=== PATIENT | female | born 1950 | race Caucasian/White ===

== ENCOUNTER 2017-06-11 03:58 | Inpatient (IN) | payer OTHER ==
[~2017-06-11] VITALS: Ht 170.2 cm; Wt 77.1 kg
[~2017-06-11 03:58] MED LIST: AMOXICILLIN500 M2 PO; MOVE FREE JOIN1 EACH; PREVIFEM TABLE1 EACH PO; VITAMIN D31000 UNI1 PO; ZANTAC150 M1 PO; ZYRTEC10 M3 PO
--- NOTE | 2017-06-11 13:22 | Admission Core Measures ---
Acute Coronary Syndrome (CM) ACS Core Measures Acute Coronary Syndrome Diagnosis No Congestive Heart Failure (NEW) CHF Core Measures Congestive Heart Failure Diagnosis No Cerebrovascular Accident (NEW) CVA Core Measures CVA/TIA Diagnosis No Venous Thromboembolism VTE Core Padmini (View Protocol) VTE Risk Factors Surgery No Mechanical VTE Prophylaxis d/t N/A MechProphylax Ordered No VTE Pharm Prophylaxis d/t NA PharmProphylax ordered Problem List As ranked by this Provider includes Assessment & Plan 1. Unilateral primary osteoarthritis, left knee HOME MEDS Home Med List Cetirizine HCl (Zyrtec) 10 MG TABLET 1 TAB PO PRN ALLERGIES (Reported) Cholecalciferol (Vitamin D3) (Vitamin D3) 1,000 UNIT CAPSULE 1 CAP PO DAILY SUPPLEMENT (Reported) Ranitidine HCl (Zantac) 150 MG TABLET 1 TAB PO BID GI (Reported)
[2017-06-11] MEDS ORDERED: MIRALAX17 G1 PO (13:29)
[2017-06-11] MEDS ORDERED: ASPIRIN EC325 M2 PO (13:29)
[2017-06-11] MEDS ORDERED: COLACE100 M1 PO (13:29)
[2017-06-11] MEDS ORDERED: DILAUDID2 M1 PO (13:29)
[2017-06-11] MEDS ORDERED: ASPIRIN EC81 M1 PO (13:36)
--- NOTE | 2017-06-11 13:41 | Patient Discharge Instructions ---
Discharge Instructions General Discharge Information You were seen/treated for: Left knee pain related to unilateral primary osteoarthritis You had these procedures: Left total knee replacement Watch for these problems: Increasing pain despite the use of pain medication Increasing redness, warmth or swelling Drainage of any type from incision Inability to bear weight on operative leg Persistent nausea and vomiting Fever greater than 101.5 degrees Do not soak the wound: Yes No bath, but you may shower: Yes Other wound care: Please keep wound clean and dry. No ointments or lotions of any type on or near incision at any time. No exceptions. Your dressing will be changed by your nurse on the second day after your surgery. Daily dry dressing changes are recommended each day thereafter. Do not soak your wound in a bath at any time until otherwise indicated by your surgeon. You may shower, please dry wound immediately after shower with a clean towel. Special Instructions: Aspirin: You are taking this medication to help prevent blood clot formation. Please take with food to protect your stomach lining. Please take as directed. Constipation: Pain medication can cause constipation. Dr. Castro has recommended that you take Colace and miralax each day. You may discontinue this medication if you develop loose stool or diarrhea. If you wish to continue this medication, it is available over the counter. If you are unable to move your bowels after several days, if you are unable to pass gas and are developing bloating, nausea, or vomiting as a result, please contact your doctor. Diet Continue normal diet: Yes Recommended Diet: Regular Acute Coronary Syndrome Inclusion Criteria At DC or during hospital stay patient has or had the following: ACS DIAGNOSIS No Discharge Core Measures Meds if any: Prescribed or Continued at Discharge Meds if any: NOT Prescribed or Continued at Discharge Congestive Heart Failure Inclusion Criteria At DC or during hospital stay patient has or had the following: CHF DIAGNOSIS No Discharge Core Measures Meds if any: Prescribed or Continued at Discharge Meds if any: NOT Prescribed or Continued at Discharge Cerebrovascular accident Inclusion Criteria At DC or during hospital stay patient has or had the following: CVA/TIA Diagnosis No Discharge Core Measures Meds if any: Prescribed or Continued at Discharge Meds if any: NOT Prescribed or Continued at Discharge Venous thromboembolism Inclusion Criteria VTE Diagnosis No VTE Type NONE VTE Confirmed by (Test) NONE Discharge Core Measures - Per Current guidelines, there needs to be overlap - treatment for the first 5 days of Warfarin therapy. - If discharged on Warfarin prior to 5 days of - overlap therapy, the patient will need to be - assessed for post discharge needs including - *Post discharge parental anticoagulation - *Warfarin and/or parental anticoagulation education - *Follow up date to check INR post discharge At least 5 days overlap therapy as Inpatient No Meds if any: Prescribed or Continued at Discharge Note: Overlap Therapy is Warfarin and Anticoagulant Meds if any: NOT Prescribed or Continued at Discharge
--- NOTE | 2017-06-11 13:49 | Surgical Discharge Summary ---
Visit Information Visit Dates Admission Date: 06/11/17 Discharge Date: 06/13/17 History of Present Illness Chief Complaint: Left knee pain related to unilateral primary osteoarthritis Medical History Isolation History: Standard Surgical History Pertinent Surgical History: non-contributory Review of Systems: See H&P Hospital Course Course Attending Physician: Saulo Castro MD Primary Care Physician: Elian Rowe MD Hospital Course: Patient was admitted to the hospital for an elective total joint replacement. The procedure was tolerated well and patient was transferred to a general surgical floor. Diet was advanced and tolerated, and the patient voided spontaneously. The patient was evaluated and treated by physical therapy. At the time of hospital discharge, the vital signs were stable, neurovascular status was intact, and pain was controlled with the use of oral pain medications. She was discharged to home on POD#2 after being cleared by PT. She requested a prescription for "hydrocodone" instead of dilaudid, as she felt it has been more effective for pain control in her past. Complications: NONE Allergies: Coded Allergies: No Known Allergies (06/11/17) Disposition Summary Disposition Principal Diagnosis: Left knee unilateral primary osteoarthritis Additional Diagnosis: None Discharge Disposition: home health services Discharge Instructions General Discharge Information Code Status: Full Code Patient's Diet: Regular, advance as tolerated Patient's Activity: WBAT Follow-Up Instructions/Appts: Follow up with Dr. Castro in 6 weeks from date of surgery Medications at Discharge Discharge Medications: Continue taking these medications: Cholecalciferol (Vitamin D3) (Vitamin D3) 1,000 UNIT CAPSULE 1 Capsule ORAL DAILY Ranitidine HCl (Zantac) 150 MG TABLET 1 Tablet ORAL TWICE DAILY Glucosam/Chond/Hyalu/Cf Borate (Move Free Joint Health Tablet) 750 MG-100 MG- 1.65 MG-108 MG TABLET DAILY Cetirizine HCl (Zyrtec) 10 MG TABLET 1 Tablet ORAL NEEDED Start taking the following new medications: Hydromorphone HCl (Dilaudid) 2 MG TABLET 1-2 Tablet ORAL EVERY 4-6 HOURS NEEDED as needed for PAIN Qty = 36 No Refills Docusate Sodium (Colace) 100 MG CAPSULE 1 Capsule ORAL TWICE DAILY Qty = 14 No Refills Instructions: DISCONTINUE USE IF YOU DEVELOP LOOSE STOOL OR DIARRHEA Polyethylene Glycol 3350 (Miralax) 17 GRAM POWD.PACK 1 Packet ORAL DAILY Qty = 7 No Refills Instructions: dissolve in water, DISCONTINUE USE IF YOU DEVELOP LOOSE STOOL OR DIARRHEA Aspirin (Ecotrin*) 81 MG TABLET. 2 Tablet ORAL TWICE DAILY Qty = 112 No Refills Copies To: Jae CHAPMAN,Elian Powell
--- NOTE | 2017-06-11 16:15 | Operative Report ---
Operative/Inv Procedure Report Surgery Date: 06/11/17 Name of Procedure: Left total knee replacement Pre-Operative Diagnosis: Primary left knee DJD Post-Operative Diagnosis: Primary left knee DJD Estimated Blood Loss: 50ml to 100ml Surgeon/Manual Lathe Operator: Matthew CHAPMAN,Saulo Khanna Anesthesia: block Operative/Procedure Note Note: Description of Procedure: The patient was taken to the operating room and positively identified. After induction of spinal anesthesia and administration of appropriate pre-operative antibiotics, the patient was positioned supine on the operating room table and all bony prominences were well padded. A well-padded pneumatic tourniquet was placed on the left upper thigh. After performing a surgical timeout, the left lower extremity was prepped and draped in the usual sterile fashion. After exsanguination with Esmarch the tourniquet was inflated to 250mm of mercury. A standard medial parapatellar approach was made to the knee. This was carried down through skin and subcutaneous tissue to the level of the fascia. Meticulous hemostasis was maintained with Bovie electrocautery. The extensor mechanism and patellar retinaculum were opened sharply and the patella was everted. The infrapatellar fat was resected in order to improve exposure. Osteophytes were trimmed from the patella and femoral condyles and the patella was re-everted and tucked laterally. A medial release was performed and the cruciate ligaments were resected. The tibia was then subluxed anteriorly. Utilizing the appropriate extra-medullary guide, the proximal tibia was trimmed perpendicular to the long axis of the tibial shaft. Attention was then turned to the femur. After opening the medullary canal, the distal femoral cut was made in 6 degrees of valgus utilizing the appropriate intra-medullary guide. The extension gap was checked and found to be appropriate. The femur was then sized and the remainder of the femoral cuts were made with a size 5 4-in-1 femoral cutting guide. The flexion gap was checked and found to be symmetric and appropriate. The knee was then trialed with a size 5 femoral component, a size 4 tibial component and a size 11 mm polyethylene insert. The patella was trimmed to accept an A 35 patella. This yielded excellent range of motion, stability and patellar tracking. All trial components were removed and the knee was copiously irrigated with sterile saline. All components were cemented into place with Juan Simplex cement. All the components were of the [place] [employer] knee system of the above stated sizes. The knee was again irrigated after cementation. The extensor mechanism and patellar retinaculum were repaired using interrupted #1 vicryl suture. The skin was re-approximated with 2-0 vicryl and closed with reginaldo. A sterile dressing was applied, the tourniquet was deflated, the patient was awakened and taken to the recovery room in satisfactory condition.
[2017-06-11 17:33] VITALS: BP 122/80
[2017-06-11 22:07] VITALS: BP 108/74
[2017-06-12 03:04] VITALS: BP 126/74
[2017-06-12 06:58] VITALS: BP 104/64
--- NOTE | 2017-06-12 08:38 | PN- Orthopedic ---
See Addendum Subjective Subjective: Patient voiced concerns that she has numbness in her left leg and his inability to move her foot or toes. She has no pain. She is anxious and appears irritated with her current situation regarding the numbness. She is worried that this would delay her discharge and caused her inability to ambulate. She is demanding that the On-Q be removed Objective Vital Signs and I&Os Vital Signs Date Time Temp Pulse Resp B/P B/P Pulse O2 O2 Flow FiO2 Mean Ox Delivery Rate 06/12 0658 98.0 84 16 104/64 96 Room Air 06/12 0304 98.3 80 16 126/74 98 Room Air 06/11 2207 97.9 76 19 108/74 97 Room Air 06/11 1733 97.8 75 18 122/80 97 Room Air Intake & Output 06/12 1600 06/12 0800 06/12 0000 06/11 1600 06/11 0800 06/11 0000 Intake Total 600 1200 Output Total 200 Balance 400 1200 Intake, IV 600 600 Intake, Oral 600 Output, Urine 200 Patient 170 lb Weight Physical Exam: Well-developed well-nourished no apparent distress. HEENT: Atraumatic, extraocular motion intact Neck: Supple, no lymphadenopathy Respiratory: No respiratory distress Extremities: No edema LEFT lower extremity dressing in place, on Q in place, this was removed by myself at the request of the patient. Removed without difficulty. Range of motion 0-[address] in place Sensation intact distally. There is one out of 5 strength of EHL, extensors of the toes and ankle dorsiflexion. Patient states that she cannot move her foot or leg otherwise, questionable effort is noted objectively dorsal pedal pulses intact Bilateral calves are supple, nontender. Neuro: Alert and oriented x3 Psych: Anxious, irritated. Normal memory normal judgment. Skin: Warm and dry, no rash on exposed skin Results Last 48 Hours of Labs: Laboratory Tests 06/12 0815 Chemistry Sodium Pending Potassium Pending Chloride Pending Carbon Dioxide Pending Anion Gap Pending BUN Pending Creatinine Pending BUN/Creatinine Ratio Pending Hematology CBC w Diff Pending WBC Pending RBC Pending Hgb Pending Hct Pending MCV Pending MCH Pending RDW Pending Plt Count Pending MPV Pending PUBS MCHC Pending Assessment/Plan Assessment/Plan Postop day #1 status post left total knee arthroplasty Perioperative antibiotics. Pain medication as needed. Out of bed Physical therapy, weightbearing as tolerated DC IV fluids Regular diet Follow a.m. labs Aspirin for DVT prophylaxis ALPS for DVT prophylaxis Regular home meds Dressing change postop day 2 On-Q was removed due to patient demanding this. I had a lengthy discussion with her regarding her postoperative pain control and the benefits of the On-Q pump and her pain may be hard to manage postoperatively. She understands. We will continue monitoring her neuro status of her left leg in regards to numbness however she understands this may take multiple hours to return due to the long- acting nature of the local anesthetic. will discuss w Attending Core Measures Venous Thromboembolism VTE Risk Factors Surgery No Mechanical VTE Prophylaxis d/t N/A MechProphylax Ordered No VTE Pharm Prophylaxis d/t NA PharmProphylax ordered
[2017-06-12 09:38] LABS: ABSOLUTE BASOPHIL COUNT 0.1 /CUMM (0.0-0.2); ABSOLUTE EOSINOPHIL COUNT 0 /CUMM (0.0-0.7); ABSOLUTE GRANULOCYTE CT 6.7 /CUMM (1.4-6.5); ABSOLUTE LYMPH COUNT 1.9 /CUMM (1.2-3.4); ABSOLUTE MONOCYTE COUNT 0.9 /CUMM (0.10-0.60); BASOPHIL % 0.5 % (0.0-2.0); EOSINOPHIL % 0.1 % (0-5); GRANULOCYTE % 69.9 % (42.2-75.2); HEMATOCRIT 29.2 % (37-47); MEAN CORPUSCULAR HGB 27.6 PG (27.0-31.0); MEAN CORPUSCULAR HGB CONC 33.2 G/DL (33.0-37.0); MEAN CORPUSCULAR VOLUME 83.3 FL (81.0-99.0); MEAN PLATELET VOLUME 7.9 FL (7.4-10.4); PLATELET COUNT 188 /CUMM (130-400); WHITE BLOOD CELL COUNT 9.6 /CUMM (4.8-10.8)
[2017-06-12 11:40] VITALS: BP 122/70
[2017-06-12 15:35] VITALS: BP 120/68
[2017-06-12 19:30] VITALS: BP 120/70
[2017-06-13 00:13] VITALS: BP 122/68
[2017-06-13 04:17] VITALS: BP 128/76
[2017-06-13 08:03] VITALS: BP 124/74
--- NOTE | 2017-06-13 09:57 | PN- Orthopedic ---
Subjective Subjective: Reports numbness from on q has worn off. Pain improves with dilaudid, but she is requesting changing the dilaudid to vicodin. Out of bed with PT, accomplished stairs, and cleared by PT for home today. She denies dizziness. No shortness of breath. No chest pains. Tolerating diet. +flatus. Voiding well. She anticipates discharge today around noon. Objective Vital Signs and I&Os Vital Signs Date Time Temp Pulse Resp B/P B/P Pulse O2 O2 Flow FiO2 Mean Ox Delivery Rate 06/13 0803 99.0 75 18 124/74 94 Room Air 06/13 0417 98.9 75 20 128/76 95 Room Air 06/13 0013 98.4 81 20 122/68 96 Room Air 06/12 1930 99.6 74 20 120/70 96 06/12 1535 98.0 63 16 120/68 96 Room Air 06/12 1140 98.1 81 16 122/70 99 Room Air Intake & Output 06/13 1600 06/13 0800 06/13 0000 06/12 1600 06/12 0800 06/12 0000 Intake Total 120 170 050 294 2283 Output Total 350 200 Balance -230 170 066 289 8156 Intake, IV 30 300 600 600 Intake, Oral 120 140 600 Output, Urine 350 200 Patient 170 lb Weight Physical Exam: General - alert & oriented x 3. comfortable. out of bed to chair. no acute distress. Lungs - clear bilaterally. no w/r/r. Cardiac - s1s2. reg. Abdomen - soft. nontender. Extremities - warm bilaterally. left knee dressing changed. incision well approximated with reginaldo. no erythema or exudates. calves soft and nontender b/ l. on q removed yesterday - site c/d/i. nvi. Current Medications: Current Medications Sig/Nathen Start time Last Medication Dose Route Stop Time Status Admin Acetaminophen 1,000 MG Q6 06/11 1800 DC 06/12 IV 06/12 1201 1207 Aspirin Buffered 162 MG BID 06/11 2199 AC 06/12 PO 0806 Docusate Sodium 100 MG BID 06/11 2199 AC 06/12 PO 2128 Famotidine 20 MG BID 06/11 2199 AC 06/13 PO 0016 Hydrocodone Bitart/ 1 TAB Q4-6 PRN PRN 06/13 1000 UNVr Acetaminophen PO Hydrocodone Bitart/ 2 TAB Q4-6 PRN PRN 06/13 1000 UNVr Acetaminophen PO Hydromorphone HCl 2 MG Q4P PRN 06/11 1730 DC 06/12 PO 1815 Hydromorphone HCl 4 MG Q4P PRN 06/11 1730 DC 06/13 PO 0836 Ketorolac 15 MG Q8P PRN 06/11 1730 AC 06/13 Tromethamine IV 06/14 1725 0652 Morphine Sulfate 2 MG Q2P PRN 06/11 173 AC IV Ondansetron HCl 4 MG .STK-MED ONE 06/12 1209 DC IM 06/12 1210 Ondansetron HCl 4 MG Q6P PRN 06/11 1730 AC 06/13 IV 0835 Polyethylene Glycol 17 GM DAILY 06/12 1000 AC PO Promethazine HCl 12.5 MG Q6P PRN 06/11 173 AC IV 06/18 1214 Results Last 48 Hours of Labs: Laboratory Tests 06/12 814 Chemistry Sodium (137 - 145 mmol/L) 140 Potassium (3.5 - 5.1 mmol/L) 3.9 Chloride (98 - 107 mmol/L) 107 Carbon Dioxide (22 - 30 mmol/L) 26 Anion Gap (5 - 16) 8 BUN (7 - 17 mg/dL) 11 Creatinine (0.5 - 1.0 mg/dL) 0.9 Estimated GFR (>60 ml/min) > 60 BUN/Creatinine Ratio (7 - 25 %) 12.2 Hematology CBC w Diff NO MAN DIFF REQ WBC (4.8 - 10.8 /CUMM) 9.6 RBC (4.20 - 5.40 /CUMM) 3.50 L Hgb (12.0 - 16.0 G/DL) 9.7 L Hct (37 - 47 %) 29.2 L MCV (81.0 - 99.0 FL) 83.3 MCH (27.0 - 31.0 PG) 27.6 RDW (11.5 - 14.5 %) 14.0 Plt Count (130 - 400 /CUMM) 188 MPV (7.4 - 10.4 FL) 7.9 Gran % (42.2 - 75.2 %) 69.9 Lymphocytes % (20.5 - 51.1 %) 20.4 L Monocytes % (1.7 - 9.3 %) 9.1 Eosinophils % (0 - 5 %) 0.1 Basophils % (0.0 - 2.0 %) 0.5 Absolute Granulocytes (1.4 - 6.5 /CUMM) 6.7 H Absolute Lymphocytes (1.2 - 3.4 /CUMM) 1.9 Absolute Monocytes (0.10 - 0.60 /CUMM) 0.9 H Absolute Eosinophils (0.0 - 0.7 /CUMM) 0 Absolute Basophils (0.0 - 0.2 /CUMM) 0.1 PUBS MCHC (33.0 - 37.0 G/DL) 33.2 Assessment/Plan Assessment/Plan This 66 year old female with hx gerd, migraines, seasonal allergies, hx R TKR, is POD#2 s/p L TKR tolerating diet d/c dilaudid. try vicodin, as per patient's request continue PT. 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
[2017-06-13] MEDS ORDERED: NORCO 5-325 TA1 EACH PO (09:59)
== END 2017-06-13 11:50 | disposition home health service (06) | DRG 470 ==
LOC: SDA 03:58 → ENRESERV 14:22 → CANRESERV 14:22 → ENRESERV 14:24 → ENTRNSPT 17:03 → EDTRNSPTSTS 17:17 → 2NA 17:24 → CMPTRNSPT 17:36 → ENPENDDIS 06-13 10:04 → ENTRNSPT 06-13 11:50 → 2NA 06-13 11:50 → EDTRNSPTSTS 06-13 11:52 → CMPTRNSPT 06-13 12:20
PROVIDERS: Nurse Practitioner
PROC: 0SRD0J9 Replacement of Left Knee Joint with Synthetic Substitute, Cemented, Open Approach (ICD-10-PCS; principal; 2017-06-11)
DX: M17.12 Unilateral primary osteoarthritis, left knee (principal); K21.9 Gastro-esophageal reflux disease without esophagitis; M25.762 Osteophyte, left knee; Z96.651 Presence of right artificial knee joint
CPT/HCPCS: 2NASP; 36415; 82436; 88305; 97116-GO; 97161-GP; 97530-GO; C1713; J0131; J0690; J1885; J2405; J2550; J2795